=== PATIENT | female | born 1995 | race Caucasian/White ===

== ENCOUNTER 2019-11-21 12:35 | Emergency (ER) | payer OTHER ==
[~2019-11-21] VITALS: Ht 170.2 cm; Wt 77.0 kg
[~2019-11-21 12:35] MED LIST: AZIT250T6 PO; HYDR115S2 PO
[2019-11-21] MEDS ORDERED: fentaNYL PF VIAL 100 MCG/2 ML VIAL IVP ONE (13:30)
[2019-11-21] MEDS ORDERED: ONDANSETRON PF 4 MG/2 ML VIAL. IM ONE (13:30)
--- NOTE | 2019-11-21 13:47 | PHYS DOC ---
Past Medical History Past Medical History: Depression, Other Additional Past Medical Histor: scoliosis, migranes Past Surgical History: No Surgical History Alcohol Use: None Drug Use: None Adult General Chief Complaint Chief Complaint: HEAD INJURY/TRAUMA HPI HPI Patient is a 24 year old with history of depression and scoliosis who presents with complaint of a fall and head injury. Patient states she slipped on water while she was at work and landed on back of her head without loss of consciousness. Patient complaining of pain behind of her eyes and neck pain and rated her pain 6/10. Patient complaining of mild nausea without focal neuro deficit, fever and chills, chest pain, shortness of breath, . Review of Systems Review of Systems Constitutional: Denies fever or chills [] Eyes: Denies change in visual acuity, redness, or eye pain [] HENT: Denies nasal congestion or sore throat [] Respiratory: Denies cough or shortness of breath [] Cardiovascular: No additional information not addressed in HPI [] GI: Denies abdominal pain, nausea, vomiting, bloody stools or diarrhea [] : Denies dysuria or hematuria [] Musculoskeletal: Denies back pain or joint pain [] Integument: Denies rash or skin lesions [] Neurologic: Denies focal weakness or sensory changes , reports headache[] Endocrine: Denies polyuria or polydipsia [] All other systems were reviewed and found to be within normal limits, except as documented in this note. Current Medications Current Medications Current Medications Medications (Trade) Dose Ordered Sig/Kevin Start Time Stop Time Status Last Admin Dose Admin Fentanyl Citrate (Fentanyl 2ml Vial) 50 mcg 1X ONCE 11/21/19 14:00 11/21/19 14:01 DC 11/21/19 14:11 50 MCG Ondansetron HCl (Zofran) 4 mg 1X ONCE 11/21/19 13:30 11/21/19 13:31 DC 11/21/19 14:11 4 MG Allergies Allergies Allergies Coded Allergies Type Severity Reaction Last Updated Verified No Known Drug Allergies 07/22/15 No Physical Exam Physical Exam Constitutional: Well developed, well nourished, mild distress, non-toxic appearance. [] HENT: Normocephalic, atraumatic. Eyes: PERRLA, EOMI, conjunctiva normal, no discharge. [] Neck: Immobilized at arrival to ER Cardiovascular:Heart rate regular rhythm, no murmur [] Lungs & Thorax: Bilateral breath sounds clear to auscultation [] Abdomen: Bowel sounds normal, soft, no tenderness, no masses, no pulsatile masses. [] Skin: Warm, dry, no erythema, no rash. [] Back: No tenderness, no CVA tenderness. [] Extremities: No tenderness, no cyanosis, no clubbing, ROM intact, no edema. [] Neurologic: Alert and oriented X 3, no focal deficits noted. [] Psychologic: Affect normal, judgement normal, mood normal. [] Current Patient Data Vital Signs Vital Signs Date Time Temp Pulse Resp B/P (MAP) Pulse Ox O2 Delivery O2 Flow Rate FiO2 11/21/19 14:14 67 129/78 (95) 98 Room Air 11/21/19 14:11 16 11/21/19 12:43 98.1 98.1 Lab Values Laboratory Tests Test 11/21/19 12:56 POC Urine HCG, Qualitative Hcg negative (Negative) EKG EKG [] Radiology/Procedures Radiology/Procedures [][facility] [address] [place] [address] IMAGING REPORT Signed PATIENT: SONIYA CAVAZOS ACCOUNT: [id number] : 1995 LOCATION: ER AGE: 24 SEX: F EXAM STATUS: REG ER ORD. PHYSICIAN: TRISH DUTTON MD REASON: fall at work PROCEDURE: CT HEAD AND CERVICAL SPINE WO CT HEAD AND CERVICAL SPINE WO Clinical indications: Fall at work. Head injury. NONCONTRAST HEAD CT COMPARISON: July 22, 2015. Technique: Noncontrast axial cross sectional scanning of the head was performed. PQRS compliance Statement One or more of the following individualized dose reduction techniques were utilized for this study: 1. Automated exposure control 2. Adjustment of the mA and/or kV according to patient size 3. Use of iterative reconstruction technique Findings: No acute intracranial hemorrhage or midline shift or mass-effect or hydrocephalus or extra-axial fluid collection is seen. No focal hypodense area or sulci effacement is seen to indicate an acute infarct or edema radiographically. No skull fracture or pneumocephalus is seen. No opacification of the mastoid sinuses or the middle ear cavities or the paranasal sinuses is seen. The maxillary sinuses are not completely seen in this study. Impression: No acute intracranial abnormality is seen. CERVICAL SPINE CT WITHOUT CONTRAST TECHNIQUE: Noncontrast helical CT scanning of the cervical spine was performed. Multiplanar 2-D reconstructions were generated. FINDINGS: No acute fracture or discitis or lytic process is evident. Alignment is normal and no perching of facet joints is seen. No anterolisthesis is seen. No significant degenerative disc space narrowing or endplate spurring is seen. IMPRESSION: No acute fracture. Electronically signed by: Gale Helton MD (11/21/2019 2:20 PM) [facility] DICTATED and SIGNED BY: GALE HELTON MD DATE: 11/21/191419 Course & Med Decision Making Course & Med Decision Making Pertinent Imaging studies reviewed. (See chart for details) Evaluation of patient in ER showed 24-year-old female patient with follow-up fourth and pain in her head and neck. CT head and neck was unremarkable. C- collar was removed after negative CT. Patient was advised to increase fluid intake and follow up with her primary care physician or work comp clinic. I've spoken with the patient and/or caregivers. I've explained the patient's condition, diagnosis and treatment plan based on information available to me at this time. I've answered the patient's and/or caregivers questions and addressed any concerns. The patient and/or caregivers have a good understanding the patient's diagnosis, condition and treatment plan as can be expected at this p oint. Vital signs have been stabilized. The patient's condition is stable for discharge from the emergency department. The patient will pursue further outpatient evaluation with her primary care provider or other designated consulting physician as outlined in the discharge instructions. Patient and/or caregivers are agreeable to this plan of care and follow-up instructions have been explained in detail. The patient and/or caregivers have received these instructions in written format and expressed understanding of these discharge instructions. The patient and her caregivers are aware that if any significant change in condition or worsening of symptoms should prompt him to immediately return to this of the closest emergency department. If an emergent department is not readily available I would encourage him to call 911. Mandeep Disclaimer Mandeep Disclaimer This electronic medical record was generated, in whole or in part, using a voice recognition dictation system. Departure Departure Impression: Primary Impression: Head injury Additional Impression: Fall Disposition: 01 HOME, SELF-CARE (at 1444) Condition: IMPROVED Referrals: CYRIL PAL MD (PCP) Patient Instructions: Concussion and Brain Injury, Head Injury, Adult Additional Instructions: Drink plenty of liquids Follow-up with your primary care physician in 2-3 days Return to ER if not getting better Thank you for visiting [facility]. We appreciate you trusting us with your care. If any additional problems come up don't hesitate to return to visit us. Please follow up with your primary care provider so they can plan additional care if needed and know about the problem that you had. If symptoms worsen come back to the Emergency Department. Any concerning symptoms that start such as chest pain, shortness of air, weakness or numbness on one side of the body, running high fevers or any other concerning symptoms return to the ER. Scripts Tramadol Hcl (ULTRAM) 50 Mg Tablet 50 MG PO Q6HRS PRN for PAIN, #14 TAB 0 Refills Prov: TRISH DUTTON MD 11/21/19 Ondansetron Hcl (ZOFRAN) 4 Mg Tablet 1 TAB PO PRN Q6-8HRS for nausea, #12 TAB Prov: TRISH DUTTON MD 11/21/19 Problem Qualifiers Primary Impression: Head injury Encounter type: initial encounter Qualified Codes: S09.90XA - Unspecified injury of head, initial encounter Additional Impression: Fall Encounter type: subsequent encounter Qualified Codes: W19.XXXD - Unspecified fall, subsequent encounter TRISH DUTTON MD Nov 21, 2019 13:47
[2019-11-21] MEDS ORDERED: fentaNYL PF VIAL 100 MCG/2 ML VIAL IM ONE (14:00)
--- NOTE | 2019-11-21 14:23 | RAD ---
CT HEAD AND CERVICAL SPINE WO Clinical indications: Fall at work. Head injury. NONCONTRAST HEAD CT COMPARISON: July 22, 2015. Technique: Noncontrast axial cross sectional scanning of the head was performed. RS compliance Statement One or more of the following individualized dose reduction techniques were utilized for this study: 1. Automated exposure control 2. Adjustment of the mA and/or kV according to patient size 3. Use of iterative reconstruction technique Findings: No acute intracranial hemorrhage or midline shift or mass-effect or hydrocephalus or extra-axial fluid collection is seen. No focal hypodense area or sulci effacement is seen to indicate an acute infarct or edema radiographically. No skull fracture or pneumocephalus is seen. No opacification of the mastoid sinuses or the middle ear cavities or the paranasal sinuses is seen. The maxillary sinuses are not completely seen in this study. Impression: No acute intracranial abnormality is seen. CERVICAL SPINE CT WITHOUT CONTRAST TECHNIQUE: Noncontrast helical CT scanning of the cervical spine was performed. Multiplanar 2-D reconstructions were generated. FINDINGS: No acute fracture or discitis or lytic process is evident. Alignment is normal and no perching of facet joints is seen. No anterolisthesis is seen. No significant degenerative disc space narrowing or endplate spurring is seen. IMPRESSION: No acute fracture. Electronically signed by: Mir Helton MD (11/21/2019 2:20 PM) [place] [id number]
[2019-11-21 14:43] VITALS: BP 124/76
[2019-11-21] MEDS ORDERED: ONDA4TAB7 PO (14:46)
[2019-11-21] MEDS ORDERED: TRAM-48 PO (14:46)
== END 2019-11-21 15:15 | disposition home or self-care (01) ==
LOC: ER 12:35
DX: S09.90XA Unspecified injury of head, initial encounter (principal); M54.2 Cervicalgia; R11.0 Nausea; F32.9 Major depressive disorder, single episode, unspecified; M41.9 Scoliosis, unspecified; G43.909 Migraine, unspecified, not intractable, without status migrainosus; W18.39XA Other fall on same level, initial encounter; Y93.89 Activity, other specified; Y92.89 Other specified places as the place of occurrence of the external cause; Y99.8 Other external cause status
CPT/HCPCS: 70450; 72125; 81025; 96372; 99284; J2405; J3010